=== PATIENT | female | born 1985 ===

== ENCOUNTER → 2020-09-20 | Outpatient (CLI) | payer OTHER ==
[~2020-09-20] MED LIST: ALBU25PO2 PO; ALBU8.5H8 INH; BUDE10.22 IH
== END | disposition home or self-care (01) ==
LOC: CFH 13:05
PROVIDERS: ATTEND Family Medicine
DX: N64.4 Mastodynia (principal); N63.20 Unspecified lump in the left breast, unspecified quadrant; N64.52 Nipple discharge
CPT/HCPCS: 76642; 77062; 77066; G0279